=== PATIENT | male | born 1985 | race Caucasian/White ===

== ENCOUNTER → 2017-11-09 | Outpatient (REF) | payer BC ==
[2017-11-09 14:04] LABS: ALBUMIN/GLOBULIN RATIO 1.48 (1.00-1.93); ALKALINE PHOSPHATASE 65 U/L (45-117); ALT/SGPT 34 U/L (12-78); ANION GAP 4 MEQ/L (8-16); AST/SGOT 16 U/L (7-37); BILIRUBIN,TOTAL 0.3 MG/DL (0.2-1.0); BLOOD UREA NITROGEN 20 MG/DL (7-18); CALCIUM LEVEL 8.7 MG/DL (8.5-10.1); CARBON DIOXIDE LEVEL 28 MEQ/L (21-32); CHLORIDE LEVEL 107 MEQ/L (98-107); CHOLESTEROL LEVEL 140 MG/DL (<200); CHOLESTEROL RISK RATIO 3.255 (<5); GLOMERULAR FILTRATION RATE > 60.0 (>60); GLUCOSE, FASTING 96 MG/DL (70-100); HDL CHOLESTEROL 43 MG/DL (>40); LDL CHOLESTEROL 74.8 MG/DL (<100); NON-HDL-C 97 MG/DL; POTASSIUM SERUM 4.8 MEQ/L (3.5-5.1); SODIUM LEVEL 139 MEQ/L (136-145); TOTAL PROTEIN 6.7 GM/DL (6.4-8.2); TRIGLYCERIDES LEVEL 111 MG/DL (<150)
== END ==
LOC: M LABDRWAD 12:27
DX: F90.2 Attention-deficit hyperactivity disorder, combined type (principal)
CPT/HCPCS: 80053

== ENCOUNTER 2019-06-18 18:42 | Emergency (ER) | payer BC, OTHER ==
[~2019-06-18] VITALS: Ht 167.6 cm; Wt 81.1 kg
[2019-06-18 20:49] VITALS: BP 129/90
[2019-06-18] MEDS ORDERED: VENL37.598 (20:53)
[2019-06-18] MEDS ORDERED: DEXTROAMP (20:53)
--- NOTE | 2019-06-19 09:18 | REP ---
Pain after trauma. There is a fracture of the distal phalanx of the 2nd digit, which is nondisplaced. Electronically Signed by Dell Rousseau DO 06/19/2019 09:24 A
== END 2019-06-18 21:01 | disposition home or self-care (01) ==
LOC: M ED 18:42
DX: S62.661A Nondisplaced fracture of distal phalanx of left index finger, initial encounter for closed fracture (principal); W31.9XXA Contact with unspecified machinery, initial encounter; Y92.69 Other specified industrial and construction area as the place of occurrence of the external cause; Y93.89 Activity, other specified; Y99.0 Civilian activity done for income or pay; Z88.2 Allergy status to sulfonamides; Z79.899 Other long term (current) drug therapy

== ENCOUNTER 2019-11-13 16:13 | Emergency (ER) | payer BC, OTHER ==
[~2019-11-13] VITALS: Ht 167.6 cm; Wt 81.7 kg
[~2019-11-13 16:13] MED LIST: DEXTROAMP; VENL37.598
[2019-11-13] MEDS ORDERED: ADDE1TAB14 (16:17)
[2019-11-13 17:30] VITALS: BP 124/72
== END 2019-11-13 17:32 | disposition home or self-care (01) ==
LOC: M ED 16:13
DX: J02.9 Acute pharyngitis, unspecified (principal); F90.9 Attention-deficit hyperactivity disorder, unspecified type; F33.9 Major depressive disorder, recurrent, unspecified; Z88.2 Allergy status to sulfonamides

== ENCOUNTER → 2019-12-05 | Outpatient (REF) | payer BC ==
[~2019-12-05] MED LIST changes: +ADDE1TAB14
[2019-12-05 13:52] LABS: BASO # 0.1 10^3/uL (0.0-0.2); BASO % 0.7 % (0.0-1.0); EOS # 0.2 10^3/uL (0.0-0.5); EOS % 2.8 % (0.0-3.0); HEMATOCRIT 48.5 % (42.0-52.0); HEMOGLOBIN 16.3 g/dl (13.5-17.5); LYMPH # 2.3 10^3/uL (1.5-5.0); LYMPH % 33.7 % (24.0-44.0); MEAN CORPUSCULAR HEMOGLOBIN 28.7 pg (27.0-33.0); MEAN CORPUSCULAR HGB CONC 33.6 g/dl (32.0-36.5); MEAN CORPUSCULAR VOLUME 85.4 fl (80.0-96.0); MONO # 0.8 10^3/uL (0.0-0.8); MONO % 11.2 % (0.0-5.0); NEUTROPHILS # 3.5 10^3/uL (1.5-8.5); NEUTROPHILS % 51.2 % (36.0-66.0); PLATELET COUNT, AUTOMATED 293 10^3/uL (150-450); RED BLOOD COUNT 5.68 10^6/uL (4.30-6.10); WHITE BLOOD COUNT 6.8 10^3/uL (4.0-10.0)
[2019-12-05 14:01] LABS: ALBUMIN 4.5 GM/DL (3.2-5.2); ALT/SGPT 47 U/L (12-78); BILIRUBIN,TOTAL 0.5 MG/DL (0.2-1.0); BLOOD UREA NITROGEN 12 MG/DL (7-18); CALCIUM LEVEL 9.3 MG/DL (8.5-10.1); CARBON DIOXIDE LEVEL 28 MEQ/L (21-32); CHLORIDE LEVEL 106 MEQ/L (98-107); CHOLESTEROL LEVEL 179 MG/DL (<200); CHOLESTEROL RISK RATIO 3.977 (<5); CREATININE FOR GFR 0.92 MG/DL (0.70-1.30); FREE T4 0.91 NG/DL (0.76-1.46); GLOMERULAR FILTRATION RATE > 60.0 (>60); GLUCOSE, FASTING 90 MG/DL (70-100); HDL CHOLESTEROL 45 MG/DL (>40); LDL CHOLESTEROL 106 MG/DL (<100); NON-HDL-C 134 MG/DL; POTASSIUM SERUM 4.3 MEQ/L (3.5-5.1); SODIUM LEVEL 138 MEQ/L (136-145); TOTAL PROTEIN 7.3 GM/DL (6.4-8.2); TRIGLYCERIDES LEVEL 142 MG/DL (<150)
[2019-12-05 14:04] LABS: TOTAL 25(OH) VITAMIN D 15.4 NG/ML (30.0-100.0)
== END ==
LOC: M SFHCADAM 08:23
PROVIDERS: ATTEND Physician Assistant
DX: Z13.21 Encounter for screening for nutritional disorder (principal); Z82.49 Family history of ischemic heart disease and other diseases of the circulatory system; Z83.49 Family history of other endocrine, nutritional and metabolic diseases

== ENCOUNTER 2021-01-21 07:52 | Emergency (ER) | payer BC ==
[~2021-01-21] VITALS: Ht 167.6 cm; Wt 83.1 kg
--- NOTE | 2021-01-21 08:49 | REP ---
INDICATION: trauma, left posterior. COMPARISON: None. TECHNIQUE: Single AP view of the pelvis FINDINGS: No acute fracture or dislocation. Skeletal structures, joint spaces, and surrounding soft tissues are normal. IMPRESSION: No acute fracture. <Electronically signed by Gualberto Conway > 01/21/21 0820
--- NOTE | 2021-01-21 08:49 | REP ---
INDICATION: trauma, left posterior COMPARISON: None. TECHNIQUE: AP, lateral, bilateral oblique, and coned-down views of the lumbar spine. FINDINGS: Alignment and lordosis maintained. Vertebral bodies are intact. Disc spaces are relatively normal/age-appropriate. No acute fracture/compression injury or subluxation. No obvious spondylolysis or spondylolisthesis.. Frontal radiograph demonstrates nondisplaced fracture involving the posterior aspect left 11th rib. IMPRESSION: Normal Lumbosacral Spine series. Nondisplaced left 11th rib fracture. <Electronically signed by Gualberto Conway > 01/21/21 0801
--- NOTE | 2021-01-21 10:16 | REP ---
INDICATION: trauma, rib fx. r/o pneumo COMPARISON: None. TECHNIQUE: Portable AP view of the chest FINDINGS: The mediastinum and cardiac silhouette are stable and within normal limits for portable technique. The lung edmondson are clear without acute consolidation, effusion, or pneumothorax. Skeletal structures are intact. Left lower rib fracture identified on lumbosacral spine radiographs not visible on current x-ray. IMPRESSION: No acute cardiopulmonary process appreciated. <Electronically signed by Gualberto Conway > 01/21/21 1012
[2021-01-21 10:25] VITALS: BP 118/73
== END 2021-01-21 10:31 | disposition home or self-care (01) ==
LOC: M ED 07:52
DX: S22.32XA Fracture of one rib, left side, initial encounter for closed fracture (principal); V86.55XA Driver of 3- or 4- wheeled all-terrain vehicle (ATV) injured in nontraffic accident, initial encounter; Y92.9 Unspecified place or not applicable; Y93.9 Activity, unspecified; Y99.9 Unspecified external cause status; Z79.899 Other long term (current) drug therapy; Z88.1 Allergy status to other antibiotic agents; Z88.2 Allergy status to sulfonamides

== ENCOUNTER → 2021-07-17 | Outpatient (REF) | payer BC ==
[2021-07-17 13:26] LABS: THYROID STIMULATING HORMONE 1.5 uIU/ML (0.358-3.740); TOTAL 25(OH) VITAMIN D 20.9 NG/ML (30.0-100.0)
== END ==
LOC: M SFHCADAM 10:47
PROVIDERS: ATTEND Physician Assistant Medical
DX: E55.9 Vitamin D deficiency, unspecified (principal); E78.00 Pure hypercholesterolemia, unspecified

== ENCOUNTER 2021-12-05 12:11 | Emergency (ER) | payer BC ==
[2021-12-05] MEDS ORDERED: BOOSTRIX/ADACEL VACCINE (DIPHTH/PERTUSS/ACELL/TETANUS) 0.5ML SYR IM ONE (12:55)
[2021-12-05] MEDS ORDERED: MORPHINE 4 MG/ML 1ML VIAL/SYRINGE (J2270) IV ONE (13:00)
[2021-12-05] MEDS ORDERED: ONDANSETRON 4MG/2ML VIAL IV ONE (13:00)
[2021-12-05] MEDS ORDERED: NS 1,000 ML IV ONE (13:00)
[2021-12-05] MEDS ORDERED: PIPERACILLIN/TAZOBACTAM SOD 4.5 GM in D5W MINI-BAG PLUS 50 ML IV ONE (13:00)
[2021-12-05 13:42] LABS: BASO # 0.1 10^3/uL (0.0-0.2); BASO % 0.5 % (0.0-1.0); EOS # 0.1 10^3/uL (0.0-0.5); EOS % 0.7 % (0.0-3.0); HEMATOCRIT 44.3 % (42.0-52.0); HEMOGLOBIN 14.8 g/dl (13.5-17.5); LYMPH # 1.5 10^3/uL (1.5-5.0); LYMPH % 14.3 % (24.0-44.0); MEAN CORPUSCULAR HEMOGLOBIN 28.4 pg (27.0-33.0); MEAN CORPUSCULAR HGB CONC 33.4 g/dl (32.0-36.5); MONO # 0.6 10^3/uL (0.0-0.8); MONO % 5.6 % (2.0-8.0); NEUTROPHILS # 8.3 10^3/uL (1.5-8.5); NEUTROPHILS % 78.3 % (36.0-66.0); PLATELET COUNT, AUTOMATED 284 10^3/uL (150-450); RED BLOOD COUNT 5.21 10^6/uL (4.30-6.10); WHITE BLOOD COUNT 10.6 10^3/uL (4.0-10.0)
[2021-12-05] MEDS ORDERED: LIDOCAINE 2% MDV 20ML VIAL SC ONE (13:50)
[2021-12-05 13:51] LABS: BLOOD UREA NITROGEN 16 MG/DL (7-18); CALCIUM LEVEL 9.8 MG/DL (8.5-10.1); CARBON DIOXIDE LEVEL 27 MEQ/L (21-32); CHLORIDE LEVEL 109 MEQ/L (98-107); CREATININE FOR GFR 1.04 MG/DL (0.70-1.30); GLOMERULAR FILTRATION RATE > 60.0 (>60); GLUCOSE, FASTING 128 MG/DL (70-100); POTASSIUM SERUM 4.4 MEQ/L (3.5-5.1); SODIUM LEVEL 140 MEQ/L (136-145)
[2021-12-05 13:59] LABS: INR 0.95; PROTHROMBIN TIME 13.1 SECONDS (12.7-14.5)
[2021-12-05 14:00] LABS: PARTIAL THROMBOPLASTIN TIME 24.7 SECONDS (25.9-37.0)
[2021-12-05 14:09] LABS: RSV AMPLIFICATION NEGATIVE (NEGATIVE)
[2021-12-05] MEDS ORDERED: CEPH500C PO (15:04)
[2021-12-05 15:42] VITALS: BP 128/58
== END 2021-12-05 16:35 | disposition home or self-care (01) ==
LOC: EDBD 12:11 → M ED 12:11
DX: S66.320A Laceration of extensor muscle, fascia and tendon of right index finger at wrist and hand level, initial encounter (principal); S61.411A Laceration without foreign body of right hand, initial encounter; W31.2XXA Contact with powered woodworking and forming machines, initial encounter; Y92.009 Unspecified place in unspecified non-institutional (private) residence as the place of occurrence of the external cause; Y93.9 Activity, unspecified; Y99.9 Unspecified external cause status; F90.9 Attention-deficit hyperactivity disorder, unspecified type; F41.9 Anxiety disorder, unspecified; Z88.2 Allergy status to sulfonamides; Z79.899 Other long term (current) drug therapy
CPT/HCPCS: 12002; 13132; 73130; 80048; 85025; 85610; 85730; 86850; 86900; 86901; 87631; 90471; 90715; 96365; 96366; 96375; 99284; J2270; J2405; J2543

== ENCOUNTER 2021-12-09 08:04 | Day surgery (SDC) | payer BC ==
[~2021-12-09] VITALS: Ht 167.6 cm; Wt 83.0 kg
[~2021-12-09 08:04] MED LIST changes: +CEPH500C PO; +ceFAZolin SOD 2 GM in IV 1 EA IV ONE
[2021-12-09] MEDS ORDERED: LR 1,000 ML IV ONE (10:00)
[2021-12-09] MEDS ORDERED: ONDANSETRON 4MG/2ML VIAL As Ordered ONE (12:17)
[2021-12-09] MEDS ORDERED: KETOROLAC 60MG 2ML VIAL As Ordered ONE (12:17)
[2021-12-09] MEDS ORDERED: fentaNYL 100 MCG/2 ML INJECTION As Ordered ONE ×3 (12:17→13:45)
[2021-12-09] MEDS ORDERED: LIDOCAINE 2% 100MG/5ML SDV (FOR ANES.) As Ordered ONE (12:17)
[2021-12-09] MEDS ORDERED: MIDAZOLAM INJ 2MG/2ML VIAL (J2250 PER 1MG) As Ordered ONE (12:17)
[2021-12-09] MEDS ORDERED: dexameTHASONE 4 MG/ML 1ML VIAL (J1100 PER 1MG) As Ordered ONE (12:17)
[2021-12-09] MEDS ORDERED: SUGAMMADEX SODIUM 500 MG/5 ML VIAL (BRIDION) As Ordered ONE (12:17)
[2021-12-09] MEDS ORDERED: propofoL 200 MG/20 ML VIAL As Ordered ONE ×2 (12:17→12:23)
[2021-12-09] MEDS ORDERED: ROCURONIUM BROMIDE 50 MG/5 ML VIAL As Ordered ONE (12:17)
[2021-12-09] MEDS ORDERED: ACETAMINOPHEN 1000MG 100ML IV BTL (OFIRMEV) (J0131 PER 10MG) As Ordered ONE (12:17)
[2021-12-09] MEDS ORDERED: METOCLOPRAMIDE INJ 10MG/2ML VIAL (J2765 PER 1) As Ordered ONE (12:17)
[2021-12-09] MEDS ORDERED: BUPIVACAINE HCL 0.25% 10ML VIAL As Ordered ONE (12:35)
[2021-12-09] MEDS ORDERED: BACITRACIN OINTMENT 30GM TUBE As Ordered ONE (12:36)
[2021-12-09] MEDS ORDERED: PERC5TAB12 PO (14:05)
[2021-12-09] MEDS ORDERED: fentaNYL 100 MCG/2 ML INJECTION IV PRN (14:10)
[2021-12-09] MEDS ORDERED: PERCOCET 5MG/325MG TAB PO PRN (14:10)
[2021-12-09] MEDS ORDERED: ONDANSETRON 4MG/2ML VIAL IV PRN (14:10)
[2021-12-09] MEDS ORDERED: LR 1,000 ML IV SCH (14:10)
[2021-12-09 15:28] VITALS: BP 119/63
== END 2021-12-09 15:30 | disposition home or self-care (01) ==
LOC: M SDC 08:04
PROVIDERS: ATTEND Orthopaedic Surgery Hand Surgery
DX: S66.320D Laceration of extensor muscle, fascia and tendon of right index finger at wrist and hand level, subsequent encounter (principal); W31.2XXA Contact with powered woodworking and forming machines, initial encounter; Y92.009 Unspecified place in unspecified non-institutional (private) residence as the place of occurrence of the external cause; Y93.9 Activity, unspecified; Y99.9 Unspecified external cause status; F90.9 Attention-deficit hyperactivity disorder, unspecified type; F41.9 Anxiety disorder, unspecified; Z79.899 Other long term (current) drug therapy; Z88.2 Allergy status to sulfonamides
CPT/HCPCS: 13121; 25270; 25310; 26437; J0131; J0690; J1100; J1885; J2250; J2405; J2765; J3010

== ENCOUNTER → 2021-12-19 | Outpatient (CLI) | payer BC ==
[~2021-12-19] MED LIST changes: +PERC5TAB12 PO; -ceFAZolin SOD 2 GM in IV 1 EA IV ONE
== END ==
LOC: M SOG 08:05
PROVIDERS: ATTEND Physician Assistant
DX: M25.541 Pain in joints of right hand (principal)

== ENCOUNTER → 2022-09-23 | Outpatient (REF) | payer BC | LOC: M SFHCADAM 10:39 | PROVIDERS: ATTEND Physician Assistant Medical | DX: R04.2 Hemoptysis (principal) ==

== ENCOUNTER → 2024-05-10 | Outpatient (REF) | payer SELFPAY ==
[2024-05-10 13:40] LABS: BASO # 0.1 10^3/uL (0.0-0.2); EOS # 0.2 10^3/uL (0.0-0.5); EOS % 2.9 % (0.0-3.0); HEMOGLOBIN 15.3 g/dl (13.5-17.5); LYMPH # 1.8 10^3/uL (1.5-5.0); LYMPH % 22.1 % (24.0-44.0); MEAN CORPUSCULAR HEMOGLOBIN 28.1 pg (27.0-33.0); MEAN CORPUSCULAR HGB CONC 33.3 g/dl (32.0-36.5); MEAN CORPUSCULAR VOLUME 84.4 fl (80.0-96.0); MONO # 0.7 10^3/uL (0.0-0.8); MONO % 8.1 % (2.0-8.0); NEUTROPHILS # 5.1 10^3/uL (1.5-8.5); NEUTROPHILS % 62.5 % (36.0-66.0); PLATELET COUNT, AUTOMATED 386 10^3/uL (150-450); RED BLOOD COUNT 5.45 10^6/uL (4.30-6.10); WHITE BLOOD COUNT 8.2 10^3/uL (4.0-10.0)
[2024-05-10 14:01] LABS: ALBUMIN 4.1 G/DL (3.2-5.2); ALKALINE PHOSPHATASE 78 U/L (46-116); ALT/SGPT 39 U/L (7.0-40); AST/SGOT 18 U/L (<34); BILIRUBIN,TOTAL 0.3 MG/DL (0.3-1.2); BLOOD UREA NITROGEN 7 MG/DL (9-23); CALCIUM LEVEL 9.5 MG/DL (8.5-10.1); CARBON DIOXIDE LEVEL 27 MMOL/L (20-31); CHLORIDE LEVEL 106 MMOL/L (98-107); CHOLESTEROL LEVEL 173 MG/DL (<200); CHOLESTEROL RISK RATIO 5.16 (<5); CREATININE FOR GFR 0.87 MG/DL (0.70-1.30); GLOMERULAR FILTRATION RATE > 60.0 (>60); GLUCOSE, FASTING 93 MG/DL (60-100); HDL CHOLESTEROL 33.5 MG/DL (>40); LDL CHOLESTEROL 101.3 MG/DL (<100); NON-HDL-C 139.5 MG/DL; POTASSIUM SERUM 4.5 MMOL/L (3.5-5.1); SODIUM LEVEL 141 MMOL/L (136-145); TOTAL PROTEIN 7.6 G/DL (5.7-8.2); TRIGLYCERIDES LEVEL 191 MG/DL (<150)
[2024-05-10 14:05] LABS: TOTAL 25(OH) VITAMIN D 23.7 NG/ML (20.0-100.0)
[2024-05-10 14:06] LABS: THYROID STIMULATING HORMONE 0.717 uIU/ML (0.55-4.78)
== END ==
LOC: M SFHCADAM 10:59
PROVIDERS: ATTEND Physician Assistant Medical
DX: F90.9 Attention-deficit hyperactivity disorder, unspecified type (principal); E55.9 Vitamin D deficiency, unspecified; E78.00 Pure hypercholesterolemia, unspecified

== ENCOUNTER 2025-05-09 17:08 | Inpatient (IN) | payer OTHER, SELFPAY ==
[~2025-05-09] VITALS: Ht 167.6 cm; Wt 90.4 kg
[~2025-05-09 17:08] MED LIST changes: -ADDE1TAB14; +ADDE1TAB14 PO; -VENL37.598; +VENL37.598 PO
[2025-05-09] MEDS ORDERED: ISOVUE-370 76% 100 ML VIAL As Ordered ONE (18:01)
[2025-05-09 18:19] LABS: BASO # 0.1 10^3/uL (0.0-0.2); BASO % 0.4 % (0.0-1.0); EOS # 0.1 10^3/uL (0.0-0.5); EOS % 0.6 % (0.0-3.0); LYMPH # 2.2 10^3/uL (1.5-5.0); LYMPH % 13.2 % (24.0-44.0); MONO # 1.3 10^3/uL (0.0-0.8); MONO % 8.1 % (2.0-8.0); NEUTROPHILS # 12.7 10^3/uL (1.5-8.5); NEUTROPHILS % 76.5 % (36.0-66.0); PLATELET COUNT, AUTOMATED 279 10^3/uL (150-450)
[2025-05-09 18:40] LABS: INR 0.97
[2025-05-09 18:44] LABS: CK-MB VALUE MASS 1.4 NG/ML (<3.6); ETHYL ALCOHOL (ETHANOL) < 0.003 % (0.000-0.010)
[2025-05-09 18:46] LABS: ALT/SGPT 41 U/L (7.0-40); AST/SGOT 35 U/L (<34); CALCIUM LEVEL 9.1 MG/DL (8.5-10.1); CARBON DIOXIDE LEVEL 24 MMOL/L (20-31); CHLORIDE LEVEL 109 MMOL/L (98-107); CREATININE FOR GFR 1.27 MG/DL (0.70-1.30); GLOMERULAR FILTRATION RATE 73.2 (>60); POTASSIUM SERUM 4.5 MMOL/L (3.5-5.1); SODIUM LEVEL 143 MMOL/L (136-145)
[2025-05-09] MEDS: MORPHINE 2 MG/ML 1 ML VIAL IV PRN (18:56)
[2025-05-09 18:59] LABS: CPK CREATINE PHOSPHOKINASE 284 U/L (46-171); MB/CK RELATIVE INDEX 0.49 (< OR =4)
[2025-05-09] MEDS ORDERED: HOME MED LIST COMPLETE! XX SCH (20:45)
[2025-05-09] MEDS ORDERED: MAALOX 30 ML SUSP *UDC PO PRN (21:00)
[2025-05-09] MEDS ORDERED: KETOROLAC TROMETHAMINE 10 MG TAB PO PRN (21:00)
[2025-05-09] MEDS ORDERED: MOM 30 ML SUSPENSION UDC PO PRN (21:00)
[2025-05-09] MEDS ORDERED: ONDANSETRON 4MG 2ML VIAL IV PRN (21:00)
[2025-05-09] MEDS: NS (Normal Saline) 0.9% 1,000 ML IV SCH ×2 (21:41)
[2025-05-09] MEDS: DOCUSATE SODIUM 100 MG CAPSULE PO SCH (21:48)
[2025-05-09] MEDS: ACETAMINOPHEN *IV* 1,000 MG in IV 1 EA IV ONE (21:48)
[2025-05-09 22:01] LABS: APPEARANCE, URINE CLEAR (CLEAR); BACTERIA, URINE AUTO NEGATIVE (NEGATIVE); BILIRUBIN, URINE AUTO NEGATIVE (NEGATIVE); BLOOD, URINE BLOOD NEGATIVE (NEGATIVE); GLUCOSE, URINE (UA) AUTO NEGATIVE (NEGATIVE); KETONE, URINE AUTO TRACE mg/dL (NEGATIVE); LEUKOCYTE ESTERASE, URINE AUTO NEGATIVE (NEGATIVE); MUCUS, URINE SMALL (NEGATIVE); NITRITE, URINE AUTO NEGATIVE (NEGATIVE); PROTEIN, URINE AUTO NEGATIVE (NEGATIVE); RBC, URINE AUTO 9 /HPF (0-3); SPECIFIC GRAVITY URINE AUTO 1.045 (1.002-1.035); SQUAMOUS EPITHELIAL CELL UR AU 0 /HPF (0-6); UROBILINOGEN, URINE AUTO 0.2 mg/dL (0.0-2.0); WBC, URINE AUTO 1 /HPF (0-3)
[2025-05-09 22:09] LABS: AMPHETAMINES LEVEL URINE NEGATIVE (NEGATIVE); BARBITURATES URINE NEGATIVE (NEGATIVE); BENZODIAZEPINES URINE NEGATIVE (NEGATIVE); COCAINE METABOLITE URINE NEGATIVE (NEGATIVE); METHADONE URINE NEGATIVE (NEGATIVE); PHENCYCLIDINE URINE NEGATIVE (NEGATIVE)
[2025-05-09 22:10] LABS: CANNABINOIDS URINE NEGATIVE (NEGATIVE)
[2025-05-09 22:14] LABS: OPIATES URINE POSITIVE (NEGATIVE)
[2025-05-10] VITALS (17 sets, daily range): BP systolic 111–134; BP diastolic 58–78; TEMP 98–99.9; O2SAT 92–97
[2025-05-10 07:13] LABS: PLATELET COUNT, AUTOMATED 239 10^3/uL (150-450)
[2025-05-10 07:25] LABS: INR 0.95
[2025-05-10 07:38] LABS: ALT/SGPT 36 U/L (7.0-40); AST/SGOT 28 U/L (<34); CALCIUM LEVEL 8.9 MG/DL (8.5-10.1); CARBON DIOXIDE LEVEL 24 MMOL/L (20-31); CHLORIDE LEVEL 105 MMOL/L (98-107); CREATININE FOR GFR 0.75 MG/DL (0.70-1.30); GLOMERULAR FILTRATION RATE > 90.0 (>60); POTASSIUM SERUM 4.2 MMOL/L (3.5-5.1); SODIUM LEVEL 141 MMOL/L (136-145)
[2025-05-10 07:58] LABS: ESTIMATED AVERAGE GLUCOSE 117.0 MG/DL (60-110)
[2025-05-10] MEDS: MORPHINE 2 MG/ML 1 ML VIAL IV PRN (08:44)
[2025-05-10] MEDS: MIRALAX *UNIT DOSE* 17 GM PACKET PO SCH (09:00)
[2025-05-10] MEDS: PANTOPRAZOLE 40MG VIAL IV SCH (09:28)
[2025-05-10] MEDS: LR 1,000 ML IV ONE ×2 (09:39→10:52)
[2025-05-10] MEDS ORDERED: ONDANSETRON 4MG 2ML VIAL As Ordered ONE (11:30)
[2025-05-10] MEDS ORDERED: LIDOCAINE 2% 100 MG/5 ML SDV (FOR ANES.) As Ordered ONE (11:30)
[2025-05-10] MEDS ORDERED: dexAMETHasone 4 MG/ML 1 ML VIAL As Ordered ONE (11:30)
[2025-05-10] MEDS ORDERED: ROCURONIUM BROMIDE 50MG/5ML VIAL As Ordered ONE (11:30)
[2025-05-10] MEDS ORDERED: REMIFENTANIL 1MG VIAL As Ordered ONE (11:31)
[2025-05-10] MEDS ORDERED: MIDAZOLAM INJ 2 MG/2 ML VIAL As Ordered ONE (11:31)
[2025-05-10] MEDS ORDERED: PROPOFOL 1,000 MG/100 ML VIAL As Ordered ONE (11:58)
[2025-05-10] MEDS: VANCOMYCIN 1000MG/20ML VIAL As Ordered ONE (13:30)
[2025-05-10] MEDS: NS (Normal Saline) 0.9% 1,000 ML IV SCH (14:28)
[2025-05-10] MEDS: NS (Normal Saline) 0.9% 1,000 ML IV ONE (20:08)
[2025-05-10] MEDS: RAMELTEON 8 MG TAB PO ONE (22:08)
[2025-05-11] VITALS (13 sets, daily range): BP systolic 111–134; BP diastolic 65–82; TEMP 97–97.9; O2SAT 90–97
[2025-05-11 05:08] LABS: INR 0.98
[2025-05-11 11:46] LABS: PLATELET COUNT, AUTOMATED 217 10^3/uL (150-450)
[2025-05-11 12:15] LABS: CALCIUM LEVEL 8.2 MG/DL (8.5-10.1); CARBON DIOXIDE LEVEL 25 MMOL/L (20-31); CHLORIDE LEVEL 105 MMOL/L (98-107); CREATININE FOR GFR 0.81 MG/DL (0.70-1.30); GLOMERULAR FILTRATION RATE > 90.0 (>60); POTASSIUM SERUM 4.3 MMOL/L (3.5-5.1); SODIUM LEVEL 138 MMOL/L (136-145)
[2025-05-11] MEDS ORDERED: SUCCINYLCHOLINE 100MG/5ML SYRINGE As Ordered ONE (15:55)
[2025-05-11] MEDS ORDERED: dexmedeTOMIDine (4 MCG/ML) 200 MCG/50 ML BTL As Ordered ONE (15:56)
[2025-05-11] MEDS ORDERED: PHENYLephrine 500MCG 5ML (100MCG/ML) SYRINGE As Ordered ONE (18:06)
[2025-05-11] MEDS ORDERED: PHENYLEPHRINE 10MG/ML 1ML VIAL As Ordered ONE (18:14)
[2025-05-11] MEDS ORDERED: SUGAMMADEX SODIUM 500 MG/5 ML VIAL As Ordered ONE (20:25)
[2025-05-11] MEDS ORDERED: HYDROmorphone HCL 2 MG/ML 1 ML VIAL As Ordered ONE (20:27)
[2025-05-11] MEDS ORDERED: CALCIUM CHLORIDE 10% 1 GM/10 ML SYR As Ordered ONE (21:30)
[2025-05-11] MEDS ORDERED: ACETAMINOPHEN 1000MG/100ML IV BAG As Ordered ONE (22:19)
[2025-05-12] VITALS (26 sets, daily range): BP systolic 121–167; BP diastolic 68–104; TEMP 97–98.8; O2SAT 89–98
[2025-05-12] MEDS ORDERED: BISACODYL 10 MG SUPP PR PRN (02:50)
[2025-05-12] MEDS ORDERED: METOPROLOL 5 MG/5 ML VIAL IV PRN (02:50)
[2025-05-12] MEDS ORDERED: hydrALAZINE 20 MG/ML 1 ML VIAL IV PRN (02:50)
[2025-05-12] MEDS ORDERED: FUROSEMIDE 20 MG/2 ML VIAL As Ordered ONE (03:14)
[2025-05-12] MEDS: ALBUTEROL SULFATE 2.5 MG/0.5 ML INH CONCENTRATE NEB SOLN INH ONE (03:18)
[2025-05-12] MEDS: ACETAMINOPHEN 325 MG TAB PO SCH (04:20)
[2025-05-12] MEDS: ceFAZolin SODIUM 2 GM in DEXTROSE 5% (D5W) ADV/MINI-BAG 50 ML IV SCH (05:43)
[2025-05-12 06:10] LABS: INR 0.99
[2025-05-12 07:31] LABS: CALCIUM LEVEL 8.4 MG/DL (8.5-10.1); CARBON DIOXIDE LEVEL 23 MMOL/L (20-31); CHLORIDE LEVEL 107 MMOL/L (98-107); CREATININE FOR GFR 0.78 MG/DL (0.70-1.30); GLOMERULAR FILTRATION RATE > 90.0 (>60); POTASSIUM SERUM 4.3 MMOL/L (3.5-5.1); SODIUM LEVEL 141 MMOL/L (136-145)
[2025-05-12 07:32] LABS: PLATELET COUNT, AUTOMATED 228 10^3/uL (150-450)
[2025-05-12] MEDS: VENLAFAXINE **XR** 37.5 MG CAPSULE PO SCH (11:41)
[2025-05-12] MEDS ORDERED: PILL CUTTER 1 EACH XX PRN (11:45)
[2025-05-12] MEDS: MORPHINE 4 MG/ML 1 ML VIAL IV PRN (13:08)
[2025-05-13] VITALS (15 sets, daily range): BP systolic 133–144; BP diastolic 77–87; TEMP 97.8–98.6; O2SAT 92–98
[2025-05-13 05:16] LABS: PLATELET COUNT, AUTOMATED 254 10^3/uL (150-450)
[2025-05-13 05:28] LABS: INR 1.05
[2025-05-13 05:45] LABS: CALCIUM LEVEL 7.9 MG/DL (8.5-10.1); CARBON DIOXIDE LEVEL 26 MMOL/L (20-31); CHLORIDE LEVEL 105 MMOL/L (98-107); CREATININE FOR GFR 0.77 MG/DL (0.70-1.30); GLOMERULAR FILTRATION RATE > 90.0 (>60); POTASSIUM SERUM 4.1 MMOL/L (3.5-5.1); SODIUM LEVEL 140 MMOL/L (136-145)
[2025-05-13] MEDS: PANTOPRAZOLE 40MG TAB PO SCH (07:55)
[2025-05-13] MEDS: HEPARIN SOD 5000 UNITS/ML 1 ML VIAL/SYRINGE SQ SCH (15:05)
[2025-05-14] VITALS (8 sets, daily range): BP systolic 124–139; BP diastolic 73–84; TEMP 97.9–98.5; O2SAT 97–98
[2025-05-14 05:58] LABS: PLATELET COUNT, AUTOMATED 269 10^3/uL (150-450)
[2025-05-14 06:13] LABS: INR 0.99
[2025-05-14 06:24] LABS: CALCIUM LEVEL 8.6 MG/DL (8.5-10.1); CARBON DIOXIDE LEVEL 24 MMOL/L (20-31); CHLORIDE LEVEL 105 MMOL/L (98-107); CREATININE FOR GFR 0.71 MG/DL (0.70-1.30); GLOMERULAR FILTRATION RATE > 90.0 (>60); POTASSIUM SERUM 4.0 MMOL/L (3.5-5.1); SODIUM LEVEL 141 MMOL/L (136-145)
[2025-05-14] MEDS: ACETAMINOPHEN 325 MG TAB PO SCH (17:12)
[2025-05-15 03:07] VITALS: BP 127/66; TEMP 98.3; O2SAT 98
[2025-05-15 05:31] LABS: PLATELET COUNT, AUTOMATED 300 10^3/uL (150-450)
[2025-05-15 05:45] LABS: INR 0.99
[2025-05-15 06:05] LABS: CALCIUM LEVEL 8.7 MG/DL (8.5-10.1); CARBON DIOXIDE LEVEL 24 MMOL/L (20-31); CHLORIDE LEVEL 102 MMOL/L (98-107); CREATININE FOR GFR 0.69 MG/DL (0.70-1.30); GLOMERULAR FILTRATION RATE > 90.0 (>60); POTASSIUM SERUM 4.4 MMOL/L (3.5-5.1); SODIUM LEVEL 138 MMOL/L (136-145)
[2025-05-15 08:22] VITALS: BP 124/63; TEMP 97.5; O2SAT 98
[2025-05-15 16:00] VITALS: BP 146/73; TEMP 97.5; O2SAT 98
[2025-05-15 20:03] VITALS: BP 133/82; TEMP 97.6; O2SAT 98
[2025-05-15] MEDS: HEPARIN SOD 5000 UNITS/ML 1 ML VIAL/SYRINGE SQ SCH (22:12)
[2025-05-16 04:49] VITALS: BP 118/76; TEMP 97.3; O2SAT 96
[2025-05-16 07:21] VITALS: BP 126/78; TEMP 97.5; O2SAT 97
[2025-05-16 15:51] VITALS: BP 127/77; TEMP 98.2; O2SAT 95
[2025-05-16 20:30] VITALS: BP 140/86; TEMP 97.8; O2SAT 98
[2025-05-17 00:15] VITALS: BP 134/82; TEMP 97.5; O2SAT 95
[2025-05-17 04:30] VITALS: BP 117/67; TEMP 97.9; O2SAT 96
[2025-05-17 07:27] VITALS: BP 112/63; TEMP 98.1; O2SAT 96
[2025-05-17 15:24] VITALS: BP 132/94; TEMP 98; O2SAT 100
[2025-05-17 16:00] VITALS: BP 142/95; TEMP 97.5; O2SAT 97
[2025-05-17 21:34] VITALS: BP 118/84; TEMP 97.5; O2SAT 97
[2025-05-18 05:44] VITALS: BP 110/66; TEMP 97.3; O2SAT 97
[2025-05-18 14:00] VITALS: BP 125/71; TEMP 97.7
[2025-05-18 19:58] VITALS: BP 140/84; TEMP 97.7; O2SAT 100
[2025-05-19 05:26] VITALS: BP 101/71; TEMP 97.2; O2SAT 97
[2025-05-19] MEDS ORDERED: OXYC-517 PO (10:45)
[2025-05-19] MEDS ORDERED: SENN-52 PO (10:45)
[2025-05-19] MEDS ORDERED: METH-1165 PO (10:45)
[2025-05-19] MEDS ORDERED: BACI50OI TOP (10:45)
[2025-05-19] MEDS ORDERED: COLA100C5 PO (10:45)
[2025-05-19] MEDS ORDERED: ACET-897 PO (10:45)
[2025-05-19] MEDS ORDERED: ONDA4INJ4 PO (12:44)
== END 2025-05-19 14:35 | disposition home or self-care (01) | DRG 304 ==
LOC: M ED 17:08 → EDBD 17:08 → M ED INP 21:00 → M ICU 05-10 09:07 → M PCU 05-13 15:30 → M MS5PR 05-17 15:45
PROVIDERS: ADMIT Student in an Organized Health Care Education/Training Program; ATTEND Internal Medicine
PROC: 0SG1071 Fusion of 2 or more Lumbar Vertebral Joints with Autologous Tissue Substitute, Posterior Approach, Posterior Column, Open Approach (ICD-10-PCS; principal; 2025-05-11 14:30)
DX: S32.011A Stable burst fracture of first lumbar vertebra, initial encounter for closed fracture (principal); E87.20 Acidosis, unspecified; F90.9 Attention-deficit hyperactivity disorder, unspecified type; W13.2XXA Fall from, out of or through roof, initial encounter; R91.1 Solitary pulmonary nodule; Z79.899 Other long term (current) drug therapy; Z88.2 Allergy status to sulfonamides; K59.00 Constipation, unspecified; F39 Unspecified mood [affective] disorder; S32.029A Unspecified fracture of second lumbar vertebra, initial encounter for closed fracture

== ENCOUNTER → 2025-06-22 | Outpatient (CLI) | payer SELFPAY ==
[~2025-06-22] MED LIST changes: +ACET-897 PO; +BACI50OI TOP; +COLA100C5 PO; +METH-1165 PO; +ONDA4INJ4 PO; +OXYC-517 PO; +SENN-52 PO
== END ==
LOC: M RAD 12:01
PROVIDERS: ATTEND Physician Assistant
DX: S32.012D Unstable burst fracture of first lumbar vertebra, subsequent encounter for fracture with routine healing (principal)

== ENCOUNTER → 2025-08-10 | Outpatient (CLI) | payer SELFPAY | LOC: M RAD 14:23 | PROVIDERS: ATTEND Physician Assistant | DX: S32.018D Other fracture of first lumbar vertebra, subsequent encounter for fracture with routine healing (principal) ==